=== PATIENT | male | born 2000 | race Caucasian/White ===

== ENCOUNTER 2018-05-11 19:23 | Emergency (ER) | payer MEDICAID ==
[~2018-05-11] VITALS: Ht 165.1 cm; Wt 94.8 kg
[2018-05-11 19:50] VITALS: BP 144/82
--- NOTE | 2018-05-11 19:54 | NUR ---
PT TRIAGED AND WHEELCHAIRED OUT TO LOBBY AT THIS TIME. VSS.
--- NOTE | 2018-05-11 20:48 | NUR ---
PT AMBULATED TO BED 6
--- NOTE | 2018-05-11 20:57 | NUR ---
PT TO ED WITH C/O LOWER BACK PAIN X 5 MOS. DENIES INJURY OR TRAUMA. NO OBVIOUS INJURY NOTED. PER PT PAIN INCREASED TODAY AND UNABLE TO AMBULATE. PT IS AMBULATORY WITH ASSIT FROM FAMILY. PT PLACED INTO BED, PENDING MD SOTO. PMH--DENIES RX--DENIES
[2018-05-11] MEDS ORDERED: KETOROLAC 30 MG/ML VIAL IM ONE (21:10)
[2018-05-11 23:11] VITALS: BP 141/79
--- NOTE | 2018-05-11 23:11 | NUR ---
Patient discharged with v/s stable. Written and verbal after care instructions given and explained. Patient alert, oriented and verbalized understanding of instructions. Ambulatory with steady gait. All questions addressed prior to discharge. ID band removed. Patient advised to follow up with PMD. Rx of VALIUM, PERCOCET, MOTRIN given. Patient educated on indication of medication including possible reaction and side effects. Opportunity to ask questions provided and answered.
== END 2018-05-11 23:11 | disposition home or self-care (01) ==
LOC: MED 19:23
DX: M54.5 Low back pain (principal)
CPT/HCPCS: 72100; 96372; 99283; J1885

== ENCOUNTER 2020-08-08 18:31 | Emergency (ER) | payer MEDICAID ==
[~2020-08-08] VITALS: Ht 167.6 cm; Wt 95.3 kg
[2020-08-08 18:35] VITALS: BP 152/79
[2020-08-08] MEDS ORDERED: HYDROcodone/APAP 5/325 MG 1 TAB TAB PO ONE (19:10)
[2020-08-08 19:35] LABS: BASOPHILS # (AUTO) 0.1 K/uL (0.00-0.22); BASOPHILS % (AUTO) 0.7 % (0.0-2.0); EOSINOPHILS # (AUTO) 0.3 K/uL (0-0.4); EOSINOPHILS % (AUTO) 2.5 % (0.0-4.0); HEMATOCRIT 44.5 % (36-52); HEMOGLOBIN 14.9 g/dL (12.0-18.0); LYMPHOCYTES # (AUTO) 3.3 K/uL (2.0-11.5); LYMPHOCYTES % (AUTO) 30.9 % (20.5-51.1); MEAN CORPUSCULAR HEMOGLOBIN 28 pg (27-31); MEAN CORPUSCULAR HGB CONC 34 g/dL (33-37); MEAN CORPUSCULAR VOLUME 81.9 fL (80-94); MONOCYTES # (AUTO) 0.8 K/uL (0.8-1.0); MONOCYTES % (AUTO) 7.8 % (1.7-9.3); NEUTROPHILS # (AUTO) 6.1 K/uL (1.8-7.7); NEUTROPHILS % (AUTO) 58.1 % (42.2-75.2); PLATELET COUNT (AUTO) 328 K/uL (140-450); RED BLOOD CELL COUNT(AUTO) 5.44 MIL/uL (4.20-6.10); WHITE BLOOD COUNT (AUTO) 10.5 K/uL (4.8-10.8)
[2020-08-08 19:35] LABS: APPEARANCE,URINE CLEAR (CLEAR); BILIRUBIN,URINE NEGATIVE (NEGATIVE); BLOOD, URINE NEGATIVE (NEGATIVE); COLOR,URINE YELLOW (YELLOW); LEUKOCYTE ESTERASE ,URINE NEGATIVE (NEGATIVE); NITRITE, URINE NEGATIVE (NEGATIVE); PH,URINE 6.5 (5.0-9.0); UGLUCOSE NEGATIVE (NEGATIVE)
[2020-08-08 20:12] LABS: ALBUMIN 3.9 g/dL (3.4-5.0); ANION GAP 12.9 (8-16); CARBON DIOXIDE 25.7 mmol/L (21-32); CREATININE 0.9 mg/dL (0.6-1.3); POTASSIUM 3.6 mmol/L (3.5-5.1); TOTAL BILIRUBIN 0.3 mg/dL (0.0-1.0)
[2020-08-08] MEDS ORDERED: DOXYCYCLINE 100 MG CAP PO SCH (21:05)
[2020-08-08] MEDS ORDERED: cefTRIAXone 500 MG in LIDOCAINE MPF 1% 1 ML IM ONE (21:05)
[2020-08-08] MEDS ORDERED: cefTRIAXone 500 MG VIAL ONE (21:13)
[2020-08-08] MEDS ORDERED: LIDOCAINE MPF 1% 5 ML ONE (21:14)
[2020-08-08] MEDS ORDERED: DOXY100C9 PO (21:57)
[2020-08-08] MEDS ORDERED: ACET-9882 PO (21:57)
[2020-08-08 22:15] VITALS: BP 136/88
== END 2020-08-08 22:15 | disposition home or self-care (01) ==
LOC: MED 18:31
DX: N50.812 Left testicular pain (principal)
CPT/HCPCS: 36415; 76870; 80053; 81003; 83605; 85025; 96372; 99284; J0696; J2001